=== PATIENT | male | born 1965 | race Caucasian/White ===

== ENCOUNTER 2016-10-17 09:18 | Emergency (ER) | payer OTHER ==
[2016-10-17 09:18] VITALS: BMI 28.1
[2016-10-17 09:23] VITALS: BP 164/107; TEMP 97
--- NOTE | 2016-10-17 09:39 | ED.PDOC ---
General ED Provider: Dr. MITCHELL GRULLON Chief Complaint: Bite Stated Complaint: pitbull bite left tigh Time Seen by Physician: 09:20 (may present at all times no other injury offered ) Mode of Arrival: Walk-In Information Source: Patient Exam Limitations: No limitations Nursing and Triage Documentation Reviewed and Agree: Yes (no other injury offered or noted minor abrasion righ dorsal hand ) Trauma/Injury Complaint Exam - Bite Injury Complaint/Exam Location of Bite: left inner tigh Bite Occured: 3 days ago Symptoms Are: Still present Animal Immunized: Reports: Unknown Initial Severity: Mild Current Severity: Mild Character: Reports: Puncture Aggravating: Reports: None Alleviating: Reports: None Associated Signs and Symptoms: Denies: Fever, Erythema, Drainage, Swelling, Lymphadenopathy, Numbness, Tingling, Limited ROM Animal Available for Observation: Yes Infection/Sepsis Risk Factors: Present: None Drainage: Present: None Review of Systems - Review Of Systems Constitutional: Reports: No symptoms Eyes: Reports: No symptoms Ears, Nose, Mouth, Throat: Reports: No symptoms Respiratory: Reports: No symptoms Cardiac: Reports: No symptoms GI: Reports: No symptoms : Reports: No symptoms Musculoskeletal: Reports: No symptoms Skin: Reports: Other (puncture wound see photo) Neurological: Reports: No symptoms Endocrine: Reports: No symptoms Hematologic/Lymphatic: Reports: No symptoms All Other Systems: Reviewed and Negative Past Medical History - Past Medical History Previously Healthy: Yes Endocrine: Reports: None Cardiovascular: Reports: None Respiratory: Reports: None Hematological: Reports: None Gastrointestinal: Reports: None Genitourinary: Reports: None Neuro/Psych: Reports: None Musculoskeletal: Reports: None Cancer: Reports: None - Surgical History General Surgical History: Reports: Unknown - Family History Family History: Reports: Unknown - Social History Smoking Status: Current every day smoker Hx Substance Use: No Alcohol Screening: None Physical Exam - Physical Exam Appearance: Well-appearing, No pain distress, Well-nourished Eyes: [place], EOMI, Conjunctiva clear ENT: Ears normal, Nose normal, Oropharynx normal Respiratory: Airway patent, Breath sounds clear, Breath sounds equal, Respirations nonlabored Cardiovascular: RRR, Pulses normal, No rub, No murmur GI/: Soft, Nontender, No masses, Bowel sounds normal, No Organomegaly Musculoskeletal: Normal strength, ROM intact, No edema, No calf tenderness Skin: Warm, Dry ( puncture wound left tigh ) Neurological: Sensation intact, Motor intact, Reflexes intact, Cranial nerves intact, Alert, Oriented Psychiatric: Affect appropriate, Mood appropriate Critical Care Note - Critical Care Note Total Time (mins): 0 Course - Course Vital Signs: Temp Pulse Resp BP Pulse Ox 10/17/16 09:18 97.0 F L 57 L 18 164/107 H 97 Departure - Departure Time of Disposition: 09:40 Disposition: HOME SELF-CARE Discharge Problem: Puncture wound Dog bite Qualifiers: Encounter type: initial encounter Qualifier Code: (W54.0XXA) Bitten by dog, initial encounter Instructions: Animal Bite (ED) Condition: Good Pt referred to PMD for follow-up: No Additional Instructions: Please call your Family Physician as soon as possible to schedule a follow-up appointment. Allergies/Adverse Reactions: Allergies levofloxacin [From Levaquin] Adverse Reaction (Verified 10/17/16 09:23) mold Adverse Reaction (Uncoded 12/17/14 07:23) Home Medications: Ambulatory Orders 1 [No Reported Medications] 12/17/14
[2016-10-17] MEDS ORDERED: TENIVAC IM ONE (09:49)
== END 2016-10-17 10:29 | disposition home or self-care (01) ==
LOC: ED 09:18
DX: S71.132A Puncture wound without foreign body, left thigh, initial encounter (principal); S60.511A Abrasion of right hand, initial encounter; W54.0XXA Bitten by dog, initial encounter
CPT/HCPCS: 90471; 99282

== ENCOUNTER 2017-08-01 08:29 | Emergency (ER) ==
[2017-08-01 08:29] VITALS: BMI 28.1
[2017-08-01 08:36] VITALS: BP 163/109; TEMP 97.1
--- NOTE | 2017-08-01 09:27 | US ---
EXAM: Scrotal ultrasound. History: Left-sided scrotal pain. Technique: Multiple sonographic images through the scrotum were obtained. Color duplex Doppler was used to interrogate vascular flow. Findings: The right testicle measures 4.6 cm x 2.4 cm x 3.2 cm. Blood flow was documented within the right kate ticle. No right intratesticular masses are identified. The right epididymis is not hyperemic. Small r ight hydrocele. Mild right varicocele. The left testicle measures 4.5 cm x 2.3 cm x 2.8 cm. Blood flow is documented within the left testic le. No left intratesticular masses are identified. The left epididymis is not hyperemic. Small lef t hydrocele. No left varicocele. There is asymmetric skin thickening of the right scrotal sac. Impression: 1. Normal bilateral testicles. 2. Asymmetric skin thickening of the right scrotal sac. Correlate clinically for cellulitis. 3. Small bilateral hydroceles. 4. Mild right varicocele
--- NOTE | 2017-08-01 09:53 | CT ---
Exam: CT of the abdomen and pelvis without contrast History: Groin pain Technique: [address] of the abdomen pelvis without intravascular contrast FINDINGS: The lung bases are clear aside from granulomatous calcification in the right base. No sign ificant liver abnormality. The adrenals, pancreas and spleen are unremarkable. The stomach and hiatus are unremarkable.The gallbladder appears normal. Kidneys and proximal collecting system are unremark able. The appendix is normal. Atherosclerotic calcification of the aorta without aneurysm. Bowel loo ps demonstrate normal caliber. No inflamatory change seen in the mesentery or retroperitoneum. Colonic diverticulosis of the sigmoid. No pelvic fat inflammation. Normal pelvic genitourinary stru ctures. Bilateral fatty inguinal hernias without complicating features. Impression: 1. No inflammatory process, bowel or urinary obstruction is seen. 2. Bilateral fatty inguinal hernias 3. Colonic diverticulosis of the sigmoid
--- NOTE | 2017-08-01 10:08 | ED.PDOC ---
General ED Provider: Dr. MITCHELL GRULLON Chief Complaint: Non-specific Complaint Stated Complaint: groin pain testicular pain Time Seen by Physician: 08:40 (no trauma seen with catalina) Mode of Arrival: Walk-In Information Source: Patient Exam Limitations: No limitations Nursing and Triage Documentation Reviewed and Agree: Yes Reviewed sepsis parameters & appropriate labs ordered?: Yes System Inflammatory Response Syndrome: Not Applicable Sepsis Protocol: For patient's 13 years and over: Temp is 96.8 and below OR 101 and greater Pulse >90 BPM Resp >20/minute Acutely Altered Mental Status Are patient's symptoms suggestive of a new infection, such as: -Pneumonia -Skin, Soft Tissue -Endocarditis -UTI -Bone, Joint Infection -Implantable Device -Acute Abdominal Infection -Wound Infection -Meningitis -Blood Stream Catheter Infection -Unknown System Inflammatory Response Syndrome: Not Applicable Complaint Exam - Complaint/Exam Patient Complains of: Reports: Scrotal pain, Groin pain Onset/Duration: chronic issue more today Symptoms Are: Still present Timing: Constant Initial Severity: Mild Current Severity: Mild Location of Pain: Reports: Groin, Testicle Character: Reports: Dull Aggravating: Reports: None Alleviating: Reports: None Associated Signs and Symptoms: Denies: Diaphoresis, Back pain, Fever, Hematuria , Dysuria, Constipation, Blood in stool, Rectal pain, Appetite change, Nausea, Vomiting, Penile swelling, Penile discharge, Decreased urine output, Increased urine frequency, Increased thirst, Decreased activity, Lethargy, Scrotal pain, Scrotal swelling, Abdominal Pain Testicular Torsion Risk Factors: Reports: None Surgical Obstruction Risk Factors: Reports: None Related Surgical History: Reports: None Abdominal Findings: Present: None Genitalia Exam: Present: Normal findings (bilateral hernia groin) Differential Diagnoses: UTI, Testicular Torsion Review of Systems - Review Of Systems Constitutional: Reports: No symptoms Eyes: Reports: No symptoms Ears, Nose, Mouth, Throat: Reports: No symptoms Respiratory: Reports: No symptoms Cardiac: Reports: No symptoms GI: Reports: No symptoms : Reports: Other (scrotal pain) Musculoskeletal: Reports: No symptoms Skin: Reports: No symptoms Neurological: Reports: No symptoms Endocrine: Reports: No symptoms Hematologic/Lymphatic: Reports: No symptoms All Other Systems: Reviewed and Negative Past Medical History - Past Medical History Previously Healthy: Yes Endocrine: Reports: None Cardiovascular: Reports: None Respiratory: Reports: None Hematological: Reports: None Gastrointestinal: Reports: None Genitourinary: Reports: None Neuro/Psych: Reports: None Musculoskeletal: Reports: None Cancer: Reports: None - Surgical History General Surgical History: Reports: Unknown - Family History Family History: Reports: Unknown - Social History Smoking Status: Current every day smoker Hx Substance Use: No Alcohol Screening: None Physical Exam - Physical Exam Appearance: Well-appearing, No pain distress, Well-nourished Eyes: [place], EOMI, Conjunctiva clear ENT: Ears normal, Nose normal, Oropharynx normal Respiratory: Airway patent, Breath sounds clear, Breath sounds equal, Respirations nonlabored Cardiovascular: RRR, Pulses normal, No rub, No murmur GI/: Soft, Nontender (bilateral hernia groin), Bowel sounds normal, No Organomegaly Musculoskeletal: Normal strength, ROM intact, No edema, No calf tenderness Skin: Warm, Dry, Normal color Neurological: Sensation intact, Motor intact, Reflexes intact, Cranial nerves intact, Alert, Oriented Psychiatric: Affect appropriate, Mood appropriate Critical Care Note - Critical Care Note Total Time (mins): 0 Course - Course Orders, Labs, Meds: Lab Review 08/01/17 08:50 Urine Color Yellow Urine Clarity Clear Urine pH 6.5 Ur Specific [place] 1.010 Urine Protein Negative Urine Glucose (UA) Negative Urine Ketones Negative Urine Blood Negative Urine Nitrite Negative Urine Bilirubin Negative Urine Urobilinogen 0.2 Ur Leukocyte Esterase Negative Orders Category Date Time Status URINALYSIS C & S IF INDICATED Stat LAB 08/01/17 08:[address] ABDOMEN/PELVIS WO CONTRAST Stat RADS 08/01/17 08:44 Completed ULTRASOUND SCROTUM [U/S SCROTUM] Stat RADS 08/01/17 08:44 Completed Vital Signs: Temp Pulse Resp BP Pulse Ox 08/01/17 08:32 97.1 F L 61 20 163/109 H 95 Departure - Departure Time of Disposition: 10:09 Disposition: HOME SELF-CARE Discharge Problem: Inguinal hernia Qualifiers: Obstruction and gangrene presence: without obstruction or gangrene Laterality: bilateral Recurrence: not specified as recurrent Qualified Code(s): K40.20 - Bilateral inguinal hernia, without obstruction or gangrene, not specified as recurrent Instructions: Inguinal Hernia (ED) Condition: Good Pt referred to PMD for follow-up: Yes IPMP verified?: No Additional Instructions: Please call your Family Physician as soon as possible to schedule a follow-up appointment. Allergies/Adverse Reactions: Allergies levofloxacin [From Levaquin] Adverse Reaction (Verified 08/01/17 08:36) sulfamethoxazole [From Bactrim] Adverse Reaction (Verified 08/01/17 08:36) trimethoprim [From Bactrim] Adverse Reaction (Verified 08/01/17 08:36) mold Adverse Reaction (Uncoded 12/17/14 07:23) Home Medications: Ambulatory Orders Loratadine 10 mg PO DAILY 08/01/17
== END 2017-08-01 10:14 | disposition home or self-care (01) ==
LOC: ED 08:29
DX: K40.20 Bilateral inguinal hernia, without obstruction or gangrene, not specified as recurrent (principal); F17.210 Nicotine dependence, cigarettes, uncomplicated
CPT/HCPCS: 81001; 99283